=== PATIENT | female | born 1955 | race Caucasian/White ===

== ENCOUNTER 2021-08-17 09:55 | Outpatient (CLI) | payer OTHER | END 2021-08-17 09:57 | disposition home or self-care (01) | LOC: SONOGRAMA 09:55 → EDBD 09:55 → SONOGRAMA 09:57 | PROVIDERS: ATTEND Pathology Anatomic Pathology & Clinical Pathology | DX: D34 Benign neoplasm of thyroid gland (principal); E06.5 Other chronic thyroiditis; E04.8 Other specified nontoxic goiter ==